=== PATIENT | female | born 1935 | race Caucasian/White ===

== ENCOUNTER 2016-11-21 08:41 | Emergency (ER) | payer OTHER, MEDICAID ==
[~2016-11-21] VITALS: Ht 149.9 cm; Wt 63.5 kg
[2016-11-21 08:41] VITALS: BP 133/55; PULSE 66; RESP 16; TEMP 97.3; O2SAT 95
[~2016-11-21 08:41] MED LIST: AMLO10TA88 PO; ATEN50TA PO; DOCU250C75 PO; MELA3TAB36 PO; METO-290 PO; NAPR-227 PO; SIMV20TA6 PO; VALS1TAB37 PO
--- NOTE | 2016-11-21 08:45 | NUR ---
Patient to ER bed 06 to gown for evaluation. Side rails up.
--- NOTE | 2016-11-21 08:50 | NUR ---
Pt brought by family member via wheelcair, pt c/o R hip pain after twisting to collect urine, pain level 6/10, skin pink and warm, cap refill <3, VSS.
--- NOTE | 2016-11-21 08:50 | NUR ---
Dr Cheng at bedside examining patient
--- NOTE | 2016-11-21 09:25 | NUR ---
Pt off the unit for X-ray
--- NOTE | 2016-11-21 09:28 | NUR ---
Sam kimball in [facility] - 11/21/16 at 0928 by [email or web address] Pt off the unit for CT
--- NOTE | 2016-11-21 10:00 | NUR ---
Pt on stable condition at this time, VSS, pt ambulated to bathroom
[2016-11-21] MEDS ORDERED: KETOROLAC TROMETHAMINE 60 MG/2 ML VIAL IM ONE (11:45)
[2016-11-21 12:12] VITALS: BP 133/55; PULSE 66; RESP 16; TEMP 97.3; O2SAT 95
--- NOTE | 2016-11-21 12:12 | NUR ---
Patient given written and verbal discharge instructions and verbalizes understanding. ER MD discussed with patient the results and treatment provided. Patient in stable condition. ID arm band removed. Patient educated on pain management and to follow up with PMD. Pain Scale 0/10. Opportunity for questions provided and answered.
[2016-11-21] MEDS ORDERED: methylPREDNISolone SOD SUCC/PF 62.5 MG/ML VIAL IM ONE (12:15)
== END 2016-11-21 12:12 | disposition home or self-care (01) ==
LOC: SED 08:41
DX: S76.011A Strain of muscle, fascia and tendon of right hip, initial encounter (principal); I10 Essential (primary) hypertension; Z88.0 Allergy status to penicillin; X58.XXXA Exposure to other specified factors, initial encounter; Y93.89 Activity, other specified; Y92.89 Other specified places as the place of occurrence of the external cause; Y99.8 Other external cause status
CPT/HCPCS: 72170; 73510; 73552; 96372; 99284; J1885; J2930

== ENCOUNTER 2017-01-17 18:12 | Emergency (ER) | payer OTHER, MEDICAID ==
[~2017-01-17] VITALS: Ht 149.9 cm; Wt 81.6 kg
[2017-01-17 18:20] VITALS: BP_SYST 148
[2017-01-17] MEDS ORDERED: ONDANSETRON 4 MG ODT TAB PO ONE (19:45)
[2017-01-17] MEDS ORDERED: MORPHINE SULFATE 10 MG/ML VIAL IM ONE (19:45)
[2017-01-17 20:30] VITALS: BP_SYST 131
== END 2017-01-17 20:30 | disposition home or self-care (01) ==
LOC: SED 18:12
DX: S42.292A Other displaced fracture of upper end of left humerus, initial encounter for closed fracture (principal); M25.552 Pain in left hip; I10 Essential (primary) hypertension; Z88.0 Allergy status to penicillin; Z79.899 Other long term (current) drug therapy; W31.89XA Contact with other specified machinery, initial encounter; Y93.A1 Activity, exercise machines primarily for cardiorespiratory conditioning; Y92.89 Other specified places as the place of occurrence of the external cause; Y99.8 Other external cause status
CPT/HCPCS: 73030; 73510; 96372; 99284; J2270; Q0162

== ENCOUNTER 2017-03-26 16:03 | Outpatient (CLI) | payer OTHER, MEDICAID | END 2017-03-26 18:36 | disposition home or self-care (01) | LOC: SRD 16:03 | PROVIDERS: ATTEND Internal Medicine | DX: R10.9 Unspecified abdominal pain (principal); Z90.49 Acquired absence of other specified parts of digestive tract | CPT/HCPCS: 74000-TC ==

== ENCOUNTER 2017-06-28 12:28 | Outpatient (CLI) | payer OTHER, MEDICAID | END 2017-06-28 19:21 | disposition home or self-care (01) | LOC: SRD 12:28 | PROVIDERS: ATTEND Internal Medicine | DX: M16.12 Unilateral primary osteoarthritis, left hip (principal); M81.0 Age-related osteoporosis without current pathological fracture | CPT/HCPCS: 73502 ==

== ENCOUNTER 2017-09-05 08:28 | Emergency (ER) | payer OTHER, MEDICAID ==
[~2017-09-05] VITALS: Ht 149.9 cm; Wt 81.6 kg
[2017-09-05 08:33] VITALS: BP_SYST 162
[2017-09-05] MEDS ORDERED: IPRATROPIUM/ALBUTEROL SULFATE 3 ML AMPUL.NEB INH ONE (09:00)
[2017-09-05 09:10] LABS: BASOPHILS % (AUTO) 0.5 % (0.0-2.0); EOSINOPHILS # (AUTO) 0.1 K/uL (0.0-0.4); EOSINOPHILS % (AUTO) 1.2 % (0.0-4.0); HEMATOCRIT 42.4 % (36-48); HEMOGLOBIN 13.4 g/dL (12.0-16.0); LYMPHOCYTES # (AUTO) 1.7 K/uL (1.0-5.5); LYMPHOCYTES % (AUTO) 32.8 % (20.5-51.5); MEAN CORPUSCULAR HEMOGLOBIN 27 pg (27-31); MEAN CORPUSCULAR HGB CONC 32 % (32-36); MEAN CORPUSCULAR VOLUME 86 fL (79.0-98.0); MONOCYTES # (AUTO) 0.6 K/uL (0.0-1.0); MONOCYTES % (AUTO) 11.6 % (1.7-9.3); NEUTROPHILS # (AUTO) 2.8 K/uL (1.8-7.7); NEUTROPHILS % (AUTO) 53.9 % (40.0-70.0); PLATELET COUNT (AUTO) 237 K/uL (130-430); RED BLOOD CELL COUNT(AUTO) 4.96 MIL/uL (4.2-6.2); RED CELL DISTRIBUTION WIDTH 14.2 % (9.0-15.0); WHITE BLOOD COUNT (AUTO) 5.2 K/uL (4.8-10.8)
[2017-09-05 09:13] LABS: ANION GAP 6 (5-15); CALCIUM 8.9 mg/dL (8.4-11.0); CHLORIDE 96 mmol/L (98-107); CREATININE 0.91 mg/dL (0.55-1.30); GLUCOSE 251 mg/dL (70-99); POTASSIUM 3.4 mmol/L (3.5-5.1); SODIUM SERUM 134 mmol/L (136-145); UREA NITROGEN, BLOOD 13 mg/dL (8-21)
[2017-09-05 09:18] LABS: ALANINE AMINOTRANSFERASE 65 U/L (12-78); ALBUMIN 3.2 g/dL (3.4-4.8); ASPARTATE AMINOTRANSFERASE 53 U/L (10-37); TOTAL BILIRUBIN 0.4 mg/dL (0.0-1.0)
[2017-09-05] MEDS ORDERED: INSULIN REGULAR, HUMAN 10 UNITS/0.1 ML INJ SUBCUT ONE (11:15)
[2017-09-05 11:41] VITALS: BP_SYST 152
== END 2017-09-05 11:41 | disposition home or self-care (01) ==
LOC: SED 08:28
DX: J40 Bronchitis, not specified as acute or chronic (principal); E11.65 Type 2 diabetes mellitus with hyperglycemia; I10 Essential (primary) hypertension; Z88.0 Allergy status to penicillin; Z79.899 Other long term (current) drug therapy
CPT/HCPCS: 36415; 71010; 80053; 82962; 85025; 94640; 96372; 99285; J1815

== ENCOUNTER 2018-05-15 22:04 | Emergency (ER) | payer OTHER, MEDICAID ==
[~2018-05-15] VITALS: Ht 149.9 cm; Wt 77.1 kg
[~2018-05-15 22:04] MED LIST changes: +ACET-2634 PO; -AMLO10TA88 PO; -ATEN50TA PO; +DESL5TAB PO; +IBUP-1969 PO; +LIP40 PO; +LOSA100T3 PO; -MELA3TAB36 PO; -METO-290 PO; +METO50TA7 PO; -NAPR-227 PO; -SIMV20TA6 PO; +SITA100T11 PO; -VALS1TAB37 PO
[2018-05-15 22:15] VITALS: BP_SYST 187
[2018-05-16 00:30] VITALS: BP_SYST 159
== END 2018-05-16 00:29 | disposition home or self-care (01) ==
LOC: SED 22:04
DX: I10 Essential (primary) hypertension (principal); J45.909 Unspecified asthma, uncomplicated; E11.9 Type 2 diabetes mellitus without complications; E78.5 Hyperlipidemia, unspecified; Z88.0 Allergy status to penicillin; Z88.6 Allergy status to analgesic agent; Z79.899 Other long term (current) drug therapy
CPT/HCPCS: 99283

== ENCOUNTER 2018-08-21 09:37 | Inpatient (IN) | payer OTHER, MEDICAID ==
[~2018-08-21] VITALS: Ht 149.9 cm; Wt 78.9 kg
[2018-08-21] VITALS (12 sets, daily range): BP systolic 97–143
--- NOTE | 2018-08-21 09:41 | NUR ---
Patient to ER bed 3 to gown for evaluation. Side rails up. Assumed care.
--- NOTE | 2018-08-21 09:47 | NUR ---
Patient arrived via POV with family at bedside. Patient was seen at Dr. Goetz's office. Sent over for evaluation bronchitis vs. pneumonia. Patient states she has been sick for 5 days, persistant productive cough, clear green sputum. Patient denies fever at this time, and patient denies chest pain. Patient has wheezes present to bilateral lungs. Patient has moist cough. Will continue to follow up and monitor patient for changes in status.
--- NOTE | 2018-08-21 09:50 | NUR ---
ER at bedside examining patient.
[2018-08-21] MEDS ORDERED: IPRATROPIUM/ALBUTEROL SULFATE 3 ML AMPUL.NEB (DUONEB) INH ONE (10:00)
[2018-08-21] MEDS ORDERED: IPRATROPIUM/ALBUTEROL SULFATE 3 ML AMPUL.NEB (DUONEB) ONE (10:03)
[2018-08-21 10:37] LABS: BASOPHILS % (AUTO) 0.4 % (0.0-2.0); EOSINOPHILS # (AUTO) 0.1 K/uL (0.0-0.4); EOSINOPHILS % (AUTO) 0.9 % (0.0-4.0); HEMATOCRIT 39.9 % (36-48); HEMOGLOBIN 12.9 g/dL (12.0-16.0); LYMPHOCYTES # (AUTO) 2.6 K/uL (1.0-5.5); LYMPHOCYTES % (AUTO) 26.8 % (20.5-51.5); MEAN CORPUSCULAR HEMOGLOBIN 28 pg (27-31); MEAN CORPUSCULAR HGB CONC 32 % (32-36); MEAN CORPUSCULAR VOLUME 87 fL (79.0-98.0); MONOCYTES # (AUTO) 1.4 K/uL (0.0-1.0); MONOCYTES % (AUTO) 14.9 % (1.7-9.3); NEUTROPHILS # (AUTO) 5.5 K/uL (1.8-7.7); PLATELET COUNT (AUTO) 254 K/uL (130-430); RED BLOOD CELL COUNT(AUTO) 4.61 MIL/uL (4.2-6.2); RED CELL DISTRIBUTION WIDTH 13.6 % (9.0-15.0); WHITE BLOOD COUNT (AUTO) 9.6 K/uL (4.8-10.8)
[2018-08-21 11:01] LABS: ANION GAP 5 (5-15); CALCIUM 8.5 mg/dL (8.4-11.0); CHLORIDE 96 mmol/L (98-107); CREATININE 0.81 mg/dL (0.55-1.30); GLUCOSE 111 mg/dL (70-99); SODIUM SERUM 134 mmol/L (136-145); UREA NITROGEN, BLOOD 21 mg/dL (8-21)
[2018-08-21 11:06] LABS: ALANINE AMINOTRANSFERASE 34 U/L (12-78); ALBUMIN 2.9 g/dL (3.4-4.8); ASPARTATE AMINOTRANSFERASE 37 U/L (10-37); TOTAL BILIRUBIN 0.2 mg/dL (0.0-1.0)
--- NOTE | 2018-08-21 11:15 | NUR ---
Dr Wynne at bedside for evaluation
[2018-08-21] MEDS ORDERED: ENALAPRILAT DIHYDRATE 1.25 MG/ML VIAL IVP ONE (11:30)
[2018-08-21] MEDS ORDERED: ALBUTEROL SULFATE 0.083% 2.5 MG/3 ML VIAL.NEB INH ONE ×2 (11:30→12:15)
[2018-08-21] MEDS ORDERED: IPRATROPIUM BROM 0.5 MG/2.5 ML VIAL.NEB (ATROVENT) INH ONE ×2 (11:30→12:15)
[2018-08-21] MEDS ORDERED: FUROSEMIDE 40 MG/4 ML VIAL IVP ONE (11:30)
[2018-08-21] MEDS ORDERED: IPRATROPIUM/ALBUTEROL SULFATE 3 ML AMPUL.NEB (DUONEB) INH PRN (11:45)
--- NOTE | 2018-08-21 12:21 | NUR ---
Spoke with patients family member in regards to home medications list or medication bottles, he will bring them in as soon as possible.
--- NOTE | 2018-08-21 12:45 | NUR ---
# 16 FR Mathias catheter with use of sterile technique. Immediate return of 150 cc cloudy yellow urine noted. Bedside drainage bag placed below level of bladder. Urine sample collected and sent to lab. Pt tolerated procedure well. Patient unable to toilet self.
[2018-08-21] MEDS ORDERED: IOHEXOL 350 mgI/mL, 150 ML INFUS..BTL IV ONE (12:52)
--- NOTE | 2018-08-21 12:53 | NUR ---
Patient taken to CT scan on 4L via NC. Patient placed on monitor and accompanied by RN. Patient vital signs are stable at this time. Patient has 20ga to right AC for infusion of contrast during CT. Patient tolerated well.
--- NOTE | 2018-08-21 13:46 | NUR ---
Patient will be admitted to care of Dr. Myrick. Admitted to ICU unit. Will go to room ICU3. Belongings list completed. Summary report printed. Report will be given at bedside.
--- NOTE | 2018-08-21 13:46 | NUR ---
CONSULTATION PAGED PRIORITY: ROUTINE REASON FOR CONSULTATION?:RESPIRATORY FAILURE WAS CONSULT CALLED:Y PERSON WHO WAS NOTIFIED:TAMELA CONSULTING PHYSICIAN:MANDIE OWENS PARAPROFESSIONAL INTERPRETER SPECIALTY:PULMONARY PARAPROFESSIONAL INTERPRETER PHONE NUMBER:[phone]
--- NOTE | 2018-08-21 13:53 | NUR ---
MD COMMUNICATION: Dr. Azul called in, read ABG. Informed her patient was just put back on BiPAP. Dr. Azul wants repeat ABG in 1/2 hour.
[2018-08-21] MEDS: methylPREDNISolone SOD SUCC/PF 62.5 MG/ML VIAL IVP SCH ×2 (14:00→22:04)
[2018-08-21] MEDS ORDERED: ENOXAPARIN SODIUM 40 MG/0.4 ML SYRINGE SUBCUT ONE (14:45)
[2018-08-21] MEDS ORDERED: IBUP-1969 PO (14:58)
[2018-08-21] MEDS ORDERED: TURM538C PO (14:58)
[2018-08-21] MEDS ORDERED: GLUC500C2 PO (14:58)
[2018-08-21] MEDS ORDERED: LIP40 PO (14:58)
[2018-08-21] MEDS ORDERED: SITA25TA3 PO (14:58)
[2018-08-21] MEDS ORDERED: DESL5TAB29 PO (14:58)
[2018-08-21] MEDS ORDERED: ACET325C4 PO (14:58)
[2018-08-21] MEDS ORDERED: PHEDM120 PO (14:58)
[2018-08-21] MEDS ORDERED: DOCU250C14 PO (14:58)
[2018-08-21] MEDS ORDERED: DONE10TA44 PO (14:58)
[2018-08-21] MEDS ORDERED: HYDR12.55 PO (14:58)
[2018-08-21] MEDS ORDERED: METO50TA7 PO (14:58)
[2018-08-21] MEDS ORDERED: IRBE300T40 PO (14:58)
--- NOTE | 2018-08-21 15:00 | NUR ---
RT: Patient put on AVAP 500 by RT.
[2018-08-21] MEDS: LEVOFLOXACIN 250 MG/D5W 50 ML IV SCH (15:22)
[2018-08-21] MEDS: IPRATROPIUM/ALBUTEROL SULFATE 3 ML AMPUL.NEB (DUONEB) INH SCH ×3 (16:06→23:55)
--- NOTE | 2018-08-21 16:29 | NUR ---
PAGED PAGED MANDIE OWENS AT [phone] SPOKE WITH SALLY.
--- NOTE | 2018-08-21 18:45 | NUR ---
PAGED: Dr. Ramachandran (extractions technologist for Dr. Myrick) paged at [phone] for orders. Spoke with his exchange.
[2018-08-21] MEDS ORDERED: D5NS 1,000 ML IV SCH (19:00)
--- NOTE | 2018-08-21 19:18 | NUR ---
REPORT: Given to CLAUDETTE Rascon for continuation of care. No signs or symptoms of distress noted.
--- NOTE | 2018-08-21 20:00 | NUR ---
ASSESSMENT Pt quiet, with Avap in use. Pt tolerating current settings. IVF infusing right forearm 20ga no redness or swelling noted @ site. Mathias cath in use. Family At bedside.
--- NOTE | 2018-08-21 20:15 | NUR ---
DR YELENA Franklin called with ABG results, orders received to decrease FIO2 to 28%.
[2018-08-21] MEDS: FAMOTIDINE PF 20 MG/2 ML VIAL IVP SCH (22:02)
[2018-08-21] MEDS: INSULIN REGULAR, HUMAN 100 UNITS/ML, 10 ML VIAL (novoLIN R) SUBCUT PRN (22:15)
[2018-08-22] VITALS (24 sets, daily range): BP systolic 118–159
[2018-08-22] MEDS: IPRATROPIUM/ALBUTEROL SULFATE 3 ML AMPUL.NEB (DUONEB) INH SCH ×6 (04:05→23:37)
[2018-08-22] MEDS: INSULIN REGULAR, HUMAN 100 UNITS/ML, 10 ML VIAL (novoLIN R) SUBCUT PRN ×4 (06:49→21:57)
[2018-08-22] MEDS: methylPREDNISolone SOD SUCC/PF 62.5 MG/ML VIAL IVP SCH ×3 (06:51→21:42)
[2018-08-22 06:58] LABS: HEMATOCRIT 41.8 % (36-48); HEMOGLOBIN 13.5 g/dL (12.0-16.0); LYMPHOCYTES # (AUTO) 1.2 K/uL (1.0-5.5); LYMPHOCYTES % (AUTO) 11.4 % (20.5-51.5); MEAN CORPUSCULAR HEMOGLOBIN 28 pg (27-31); MEAN CORPUSCULAR HGB CONC 32 % (32-36); MEAN CORPUSCULAR VOLUME 87 fL (79.0-98.0); MONOCYTES # (AUTO) 0.5 K/uL (0.0-1.0); MONOCYTES % (AUTO) 4.3 % (1.7-9.3); NEUTROPHILS # (AUTO) 8.8 K/uL (1.8-7.7); NEUTROPHILS % (AUTO) 84.3 % (40.0-70.0); PLATELET COUNT (AUTO) 247 K/uL (130-430); RED BLOOD CELL COUNT(AUTO) 4.82 MIL/uL (4.2-6.2); RED CELL DISTRIBUTION WIDTH 13.9 % (9.0-15.0); WHITE BLOOD COUNT (AUTO) 10.5 K/uL (4.8-10.8)
[2018-08-22 07:12] LABS: ALANINE AMINOTRANSFERASE 32 U/L (12-78); ALBUMIN 2.8 g/dL (3.4-4.8); ANION GAP 5 (5-15); ASPARTATE AMINOTRANSFERASE 29 U/L (10-37); CALCIUM 8.5 mg/dL (8.4-11.0); CHLORIDE 99 mmol/L (98-107); CREATININE 0.81 mg/dL (0.55-1.30); GLUCOSE 176 mg/dL (70-99); SODIUM SERUM 137 mmol/L (136-145); TOTAL BILIRUBIN 0.2 mg/dL (0.0-1.0); UREA NITROGEN, BLOOD 23 mg/dL (8-21)
--- NOTE | 2018-08-22 07:49 | NUR ---
MD eulalia esteban for critical ABG results: pH- 7.353, pCO2- 62.6, pO2- 97.7, HCO3- 34.0, base excess- 6.4. No new orders given at this time.
--- NOTE | 2018-08-22 07:50 | NUR ---
AM Assessment Patient received lying in bed with facial mask via AVAP. Patient is awake, alert, and is able to communicate and is cooperative. She understands basic breathing techniques. O2 sat at this hour in the high 90s. Patient denies body discomfort, no nausea. Patient desired to have water. Education provided that patient is NPO and will refer to the doctor during their morning rounds.
[2018-08-22] MEDS: FAMOTIDINE PF 20 MG/2 ML VIAL IVP SCH ×2 (09:04→21:42)
[2018-08-22] MEDS: ENOXAPARIN SODIUM 40 MG/0.4 ML SYRINGE SUBCUT SCH (09:16)
--- NOTE | 2018-08-22 09:18 | NUR ---
Patient seen and evaluated by Dr. Myrick. New order received. Patient can be on full liquid diet. Patient was given water per request. Patient drank water without any issues noted. Patient was very thirsty.
[2018-08-22] MEDS: FUROSEMIDE 20 MG TABLET PO SCH (09:23)
--- NOTE | 2018-08-22 09:50 | NUR ---
Ultrasound Patient at this hour is getting a doppler ultrasound of the lower extremities.
--- NOTE | 2018-08-22 10:35 | NUR ---
O2 Patient seen with RT and AVAPS switched to NC at 2L. Will continue to monitor patient.
[2018-08-22] MEDS: 0.45% NACL 1,000 ML IV SCH (10:51)
--- NOTE | 2018-08-22 11:00 | NUR ---
1040 TOOK BIPAP OFF AND PLACED NC 2 LPM PER MD SONG. SPO2 96%, HR 83. PT TOLERATING WELL. CONTINUE TO MONITOR PT.
--- NOTE | 2018-08-22 12:00 | NUR ---
O2 sat Patient awake at this moment. O2 sat at 94%. No chest discomfort reported. Patient without any signs of respiratory distress.
[2018-08-22] MEDS: LEVOFLOXACIN 250 MG/D5W 50 ML IV SCH (15:58)
--- NOTE | 2018-08-22 16:30 | NUR ---
Wound Evaluation: Wound Consult ordered for Low Luciano Score. Patient evaluated for a low Luciano score of 15. Patient was awake, alert, oriented, and received in a [place] Bed with an IsoFlex CARLY mattress with low air loss therapy initiated. Patient needs assist to turn in bed. Skin is fair (+). Recommend encourage and assist patient as needed with repositioning every 2 hours with pillow support. Elevate, off-load and float bilateral heels with pillows. Offload pressure areas with pillows for pressure re-distribution. Perform skin care and monitor skin integrity Q shift. Use moisture barrier cream on moisture susceptible areas QID and PRN for soiling. Maintain patient on a low air-loss mattress. Skin assessment: 1. Left breast fold: Intertriginous dermatitis, present on admission. Skin is pink under breast fold, with a small linear area of non-intact skin with pink tissue measuring 0.5 cm x 8.0 cm. Recommend: Cleanse involved area with normal saline. Pat dry. Apply antifungal powder to involved area. Place Interdry AG Cloth under bilateral Breast Folds X Five Days, and PRN For Soiling. Apply antifungal powder to left breast fold twice a day, and as needed for moisture/soiling.
--- NOTE | 2018-08-22 16:30 | NUR ---
Skin care Patient has been evaluated by medical records specialist under left breast irritation. Orders carried out. Bed bath, shilpa care done. Wound care to left breast performed, washed affected area with saline, pat dry with gauze, sprinkled with phytoplex powder, and left with interdry dressing.
--- NOTE | 2018-08-22 20:00 | NUR ---
ASSESSMENT Pt alert/oriented to self, time, place. Pt using 2L/min nasal cannula. IV site 20ga no redness or swelling noted @ site. Left hand 20ga saline lock, no redness or swelling noted @ site. Pt primary language is French. No C/O SOB. low air loss mattress in use.
[2018-08-23] VITALS (24 sets, daily range): BP systolic 139–185
[2018-08-23] MEDS: IPRATROPIUM/ALBUTEROL SULFATE 3 ML AMPUL.NEB (DUONEB) INH SCH ×6 (04:25→23:52)
[2018-08-23] MEDS: methylPREDNISolone SOD SUCC/PF 62.5 MG/ML VIAL IVP SCH (06:45)
[2018-08-23 06:49] LABS: BASOPHILS % (AUTO) 0.1 % (0.0-2.0); EOSINOPHILS % (AUTO) 0.1 % (0.0-4.0); HEMATOCRIT 40.6 % (36-48); HEMOGLOBIN 13.1 g/dL (12.0-16.0); LYMPHOCYTES % (AUTO) 6.7 % (20.5-51.5); MEAN CORPUSCULAR HEMOGLOBIN 28 pg (27-31); MEAN CORPUSCULAR HGB CONC 32 % (32-36); MEAN CORPUSCULAR VOLUME 87 fL (79.0-98.0); MONOCYTES % (AUTO) 6.4 % (1.7-9.3); NEUTROPHILS # (AUTO) 13.5 K/uL (1.8-7.7); NEUTROPHILS % (AUTO) 86.7 % (40.0-70.0); PLATELET COUNT (AUTO) 304 K/uL (130-430); RED BLOOD CELL COUNT(AUTO) 4.67 MIL/uL (4.2-6.2); RED CELL DISTRIBUTION WIDTH 13.9 % (9.0-15.0); WHITE BLOOD COUNT (AUTO) 15.5 K/uL (4.8-10.8)
[2018-08-23] MEDS: INSULIN REGULAR, HUMAN 100 UNITS/ML, 10 ML VIAL (novoLIN R) SUBCUT PRN ×4 (06:50→22:37)
--- NOTE | 2018-08-23 07:30 | NUR ---
AM Rounds Received bedside report from PM RN Tarah. Pt on 1 L O2 per nasal cannula. Mathias in place. Pt. in no apparent distress. Call light within reach, bed alarm on, bed locked in lowest position.
[2018-08-23 07:37] LABS: ANION GAP 3 (5-15); CALCIUM 8.5 mg/dL (8.4-11.0); CHLORIDE 99 mmol/L (98-107); CREATININE 0.93 mg/dL (0.55-1.30); GLUCOSE 192 mg/dL (70-99); POTASSIUM 4.5 mmol/L (3.5-5.1); SODIUM SERUM 139 mmol/L (136-145); UREA NITROGEN, BLOOD 23 mg/dL (8-21)
--- NOTE | 2018-08-23 08:30 | NUR ---
Medications Administered medications to pt. Pt. tolerated well, no adverse reactions. Will continue to monitor.
[2018-08-23] MEDS: FAMOTIDINE PF 20 MG/2 ML VIAL IVP SCH (08:37)
[2018-08-23] MEDS: FUROSEMIDE 20 MG TABLET PO SCH (08:37)
[2018-08-23] MEDS: ENOXAPARIN SODIUM 40 MG/0.4 ML SYRINGE SUBCUT SCH (08:38)
[2018-08-23] MEDS: LISINOPRIL 10 MG TABLET (PRINIVIL) PO SCH (09:35)
[2018-08-23] MEDS: guaiFENesin/DEXTROMETHORPHAN 1 EACH TAB.ER.12H PO SCH ×2 (09:36→22:28)
--- NOTE | 2018-08-23 10:30 | NUR ---
Physical Therapy Physical therapist Zeke assisted patient to chair. Pt. on room air, SaO2 91%, pt. tolerating well.
[2018-08-23] MEDS: 0.45% NACL 1,000 ML IV SCH (11:34)
--- NOTE | 2018-08-23 11:35 | NUR ---
Blood Sugar Blood sugar of 313. Regular insulin 8 units administered. No adverse reactions. Will continue to monitor.
--- NOTE | 2018-08-23 11:37 | NUR ---
Nutrition Update Luciano Scale 17 noted. Pt admitted for respiratory failure. Diet: full liquid BMI: 35.3 kg/m2 RD to follow per nutrition care standards. Addendum: 08/23/18 at [address] CORRECTION: Luciano Scale 16 noted.
--- NOTE | 2018-08-23 12:45 | NUR ---
Assessment Pt. sitting up in chair watching tv with family at bedside. No chest discomfort noted and no apparent signs of distress. Call light within reach.
[2018-08-23] MEDS: methylPREDNISolone SOD SUCC 40 MG/ML VIAL IVP SCH ×2 (13:54→22:28)
[2018-08-23] MEDS: LEVOFLOXACIN 250 MG/D5W 50 ML IV SCH (14:49)
--- NOTE | 2018-08-23 16:30 | NUR ---
RN Rounds Patient sitting up in chair. Family at bedside. No apparent signs of distress. Call light within reach.
--- NOTE | 2018-08-23 16:39 | NUR ---
Dietitian Recommendations * Recommend continuing CCHO, low carb-45 gm, full liquid diet per MD (Glucerna TID comes standard w/ this diet, and provides an additional 660 kcal/day and 30 gm protein/day) LP, RD Please refer to Nutrition Assessment for details.
--- NOTE | 2018-08-23 17:00 | NUR ---
Blood sugar Blood sugar 298. Regular insulin 6 units subq given with witness. No adverse reaction.
[2018-08-23] MEDS: MONTELUKAST 10 MG TABLET PO SCH (18:08)
--- NOTE | 2018-08-23 18:51 | NUR ---
Closing Note Pt. finished 100% of dinner. Pt. sitting up in chair with family at bedside. Mathias catheter in place. Pt. in no apparent distress. Call light within reach.
--- NOTE | 2018-08-23 20:00 | NUR ---
ASSESSMENT Pt alert/oriented to self, time and place. Pt tolerating RA only. Pt talking with son no S/S of SOB. Pt has been tolerating sitting up in a chair for about 12 hours. IVF infusing, right forearm 20ga no c/o pain @ IV site, no redness noted. Left hand 20ga SL patient, no redness or swelling.
[2018-08-23] MEDS: ALPRAZolam 0.25 MG TABLET PO PRN (22:28)
[2018-08-23] MEDS: FAMOTIDINE 20 MG TABLET PO SCH (22:28)
[2018-08-23] MEDS: cloNIDine HCL 0.1 MG TABLET PO PRN (22:50)
[2018-08-24] VITALS (14 sets, daily range): BP systolic 149–190
--- NOTE | 2018-08-24 03:18 | NUR ---
CONFUSED Pt received Xanax 0.25mg per MD order, pt is now confused to place and time.
[2018-08-24] MEDS: IPRATROPIUM/ALBUTEROL SULFATE 3 ML AMPUL.NEB (DUONEB) INH SCH ×6 (03:41→23:13)
--- NOTE | 2018-08-24 03:57 | NUR ---
CONFUSED Nurse sitting @ bedside, Pt calmer, following directions. Pt receiving HHN tx.
[2018-08-24 05:48] LABS: HEMATOCRIT 39.8 % (36-48); HEMOGLOBIN 12.3 g/dL (12.0-16.0); LYMPHOCYTES % (AUTO) 6.6 % (20.5-51.5); MEAN CORPUSCULAR HEMOGLOBIN 27 pg (27-31); MEAN CORPUSCULAR HGB CONC 31 % (32-36); MEAN CORPUSCULAR VOLUME 89 fL (79.0-98.0); PLATELET COUNT (AUTO) 277 K/uL (130-430); RED BLOOD CELL COUNT(AUTO) 4.49 MIL/uL (4.2-6.2); RED CELL DISTRIBUTION WIDTH 13.6 % (9.0-15.0)
[2018-08-24 06:07] LABS: ANION GAP -1 (5-15); CALCIUM 8.2 mg/dL (8.4-11.0); CHLORIDE 102 mmol/L (98-107); CREATININE 0.93 mg/dL (0.55-1.30); GLUCOSE 243 mg/dL (70-99); POTASSIUM 4.9 mmol/L (3.5-5.1); SODIUM SERUM 139 mmol/L (136-145); UREA NITROGEN, BLOOD 19 mg/dL (8-21)
[2018-08-24 06:20] LABS: ALANINE AMINOTRANSFERASE 28 U/L (12-78); ALBUMIN 2.7 g/dL (3.4-4.8); ASPARTATE AMINOTRANSFERASE 23 U/L (10-37); TOTAL BILIRUBIN 0.3 mg/dL (0.0-1.0)
[2018-08-24] MEDS: methylPREDNISolone SOD SUCC 40 MG/ML VIAL IVP SCH ×3 (06:33→21:09)
[2018-08-24] MEDS: cloNIDine HCL 0.1 MG TABLET PO PRN ×2 (06:38→23:02)
[2018-08-24] MEDS: INSULIN REGULAR, HUMAN 100 UNITS/ML, 10 ML VIAL (novoLIN R) SUBCUT PRN ×4 (06:42→21:23)
--- NOTE | 2018-08-24 07:00 | NUR ---
MD ROUNDS: Dr. Franklin in to see patient.
[2018-08-24 07:02] LABS: WHITE BLOOD COUNT (AUTO) 13.1 K/uL (4.8-10.8)
--- NOTE | 2018-08-24 07:15 | NUR ---
REPORT: Received from Myles for continuation of care.
[2018-08-24 07:19] LABS: BASOPHILS % (AUTO) 0.2 % (0.0-2.0); EOSINOPHILS % (AUTO) 0.1 % (0.0-4.0); LYMPHOCYTES # (AUTO) 0.8 K/uL (1.0-5.5); MONOCYTES # (AUTO) 0.5 K/uL (0.0-1.0); MONOCYTES % (AUTO) 4.3 % (1.7-9.3); NEUTROPHILS # (AUTO) 11.4 K/uL (1.8-7.7); NEUTROPHILS % (AUTO) 88.8 % (40.0-70.0)
--- NOTE | 2018-08-24 07:30 | NUR ---
AM ROUNDS: Patient is resting in bed. No signs or symptoms of distress noted.
--- NOTE | 2018-08-24 08:00 | NUR ---
MD ROUNDS: Dr. Mckeon in to see patient.
[2018-08-24] MEDS: FUROSEMIDE 20 MG TABLET PO SCH (08:03)
[2018-08-24] MEDS: FAMOTIDINE 20 MG TABLET PO SCH ×2 (08:03→21:09)
[2018-08-24] MEDS: guaiFENesin/DEXTROMETHORPHAN 1 EACH TAB.ER.12H PO SCH ×2 (08:03→21:10)
[2018-08-24] MEDS: LISINOPRIL 10 MG TABLET (PRINIVIL) PO SCH (08:03)
[2018-08-24] MEDS: ENOXAPARIN SODIUM 40 MG/0.4 ML SYRINGE SUBCUT SCH (08:04)
[2018-08-24] MEDS: 0.45% NACL 1,000 ML IV SCH (10:35)
--- NOTE | 2018-08-24 11:45 | NUR ---
TRANSFERRED: Patient transferred to telemetry room 119A via bed with mobile monitoring and RN. Report given to Chanel for continuation of care.
--- NOTE | 2018-08-24 12:00 | NUR ---
RECEIVED FROM ICU Patient received from ICU. Patient is awake, alert and oriented x4, denies any pain/discomfort at this time. No respiratory distress. RT in the room, patient is receiving breathing treatment at this time. IV site on the left hand 20 G patent and intact. 1/2 NS infusing at 40 ml/hr. Oriented the patient to room, call light use, board, and routine, and patient verbalized understanding. Safety and fall precautions in place, bed is in lowest position and locked, bed alarm on, side rails up x2, call light within reach, will continue to monitor. Eliel Aleman at the bedside.
--- NOTE | 2018-08-24 15:00 | NUR ---
ROUNDS Patient has no complaints of pain or discomfort, is awake, alert and oriented x4. No respiratory distress, on 1/2L O2 via nasal cannula. IV site on the left hand patent and intact, IVF infusing as ordered. Safety and fall precautions in place, family at the bedside, call light within reach, will continue to monitor.
[2018-08-24] MEDS: LEVOFLOXACIN 250 MG/D5W 50 ML IV SCH (15:29)
[2018-08-24] MEDS: MONTELUKAST 10 MG TABLET PO SCH (17:13)
--- NOTE | 2018-08-24 18:27 | NUR ---
CLOSING NOTE Patient is awake, alert and oriented x4. Denies any pain/discomfort at this time. No respiratory distress noted, patient is on 1/2L O2 via nasal cannula. IV site on the left hand patent and intact, 1/2NS infusing as ordered. Safety and fall precautions in place. Bed is in lowest position and locked, alarm on, side rails up x2, call light within reach, family at bedside. All needs met and anticipated throughout the shift, will endorse plan of care.
--- NOTE | 2018-08-24 19:38 | NUR ---
OPENING NOTE RECEIVED CARE OF PT AND BEDSIDE REPORT. PT AWAKE IN BED, COOPERATIVE, WITH FAMILY AT BEDSIDE. IV IN LEFT HAND PATENT AND NO SIGNS OR SYMPTOMS OF INFILTRATION AT THIS TIME. SAFETY AND FALL PRECAUTIONS ARE IN PLACE. BED IN LOWEST POSITION, CALL LIGHT IN REACH, SIDE RAILS UP, PT INSTRUCTED TO CALL FOR ASSISTANCE. WILL CONTINUE TO MONITOR.
[2018-08-24] MEDS: ALPRAZolam 0.25 MG TABLET PO PRN (21:19)
--- NOTE | 2018-08-24 21:19 | NUR ---
ANXIETY PT STATES SHE WAS ANXIOUS AND HAVING TROUBLE SLEEPING. PT REQUESTING PRN ATIVAN 0.25 MG. PT EDUCATED ON MEDICATION AND SIDE EFFECTS. SAFETY PRECAUTIONS IN PLACE. WILL CONTINUE TO MONITOR.
--- NOTE | 2018-08-24 22:45 | NUR ---
BP RECHECKED PT BLOOD PRESSURE AFTER XANAX ADMINISTERED. BLOOD PRESSURE 190/79. WILL ADMINISTER PRN CATAPRES, EDUCATED PT ON MEDICATION AND POTENTIAL SIDE EFFECTS. SAFETY PRECAUTIONS IN PLACE. WILL CONTINUE TO MONITOR.
[2018-08-25] VITALS: BP_SYST 149
--- NOTE | 2018-08-25 | NUR ---
BP FOLLOW UP CATAPRES ADMINISTERED AT 2302. BP NOW 149/79. PT RESTING COMFORTABLY IN BED, DENIES ANY PAIN AT THIS TIME, NO SIGNS OR SYMPTOMS OF ACUTE DISTRESS AT THIS TIME. SAFETY PRECAUTIONS IN PLACE, CALL LIGHT WITH PATIENT. WILL CONTINUE TO MONITOR.
--- NOTE | 2018-08-25 02:00 | NUR ---
NURSING NOTE PT RESTING IN BED WITH EYES CLOSED. CHEST RISE AND FALL IS SYMMETRICAL. NO ACUTE SIGNS OF DISTRESS NOTED AT THIS TIME. SAFETY PRECAUTIONS ARE IN PLACE, CALL LIGHT IS WITH PATIENT. WILL CONTINUE TO MONITOR.
[2018-08-25] MEDS: IPRATROPIUM/ALBUTEROL SULFATE 3 ML AMPUL.NEB (DUONEB) INH SCH ×6 (03:27→23:12)
--- NOTE | 2018-08-25 04:00 | NUR ---
NURSING NOTE PT CURRENTLY RESTING IN BED WITH EYES CLOSED. CHEST RISE AND FALL IS SYMMETRICAL. NO ACUTE SIGNS OF DISTRESS NOTED AT THIS TIME. SAFETY PRECAUTIONS ARE IN PLACE, CALL LIGHT IS WITH PATIENT. WILL CONTINUE TO MONITOR.
[2018-08-25] MEDS: methylPREDNISolone SOD SUCC 40 MG/ML VIAL IVP SCH ×3 (06:00→22:26)
[2018-08-25] MEDS: INSULIN REGULAR, HUMAN 100 UNITS/ML, 10 ML VIAL (novoLIN R) SUBCUT PRN ×4 (06:18→22:30)
--- NOTE | 2018-08-25 06:30 | NUR ---
CLOSING NOTE PT RESTING IN BED. NO SIGNS OR SYMPTOMS OF DISTRESS AT THIS TIME. PT BREATHING EVENLY AND EFFORTLESSLY TO O2 VIA NC AT 2 LITERS. IVF RUNNING, NO SIGNS OR SYMPTOMS OF INFILTRATION AT IV SITE. ALL NEEDS MET DURING SHIFT. WILL ENDORSE CARE TO DAY SHIFT RN.
[2018-08-25 06:43] LABS: CALCIUM 8.2 mg/dL (8.4-11.0); CHLORIDE 100 mmol/L (98-107); CREATININE 0.85 mg/dL (0.55-1.30); GLUCOSE 199 mg/dL (70-99); POTASSIUM 4.8 mmol/L (3.5-5.1); SODIUM SERUM 138 mmol/L (136-145); UREA NITROGEN, BLOOD 19 mg/dL (8-21)
[2018-08-25 06:57] LABS: ALANINE AMINOTRANSFERASE 26 U/L (12-78); ALBUMIN 2.6 g/dL (3.4-4.8); ASPARTATE AMINOTRANSFERASE 33 U/L (10-37); TOTAL BILIRUBIN 0.2 mg/dL (0.0-1.0)
[2018-08-25 07:11] LABS: ANION GAP < 3 (5-15)
--- NOTE | 2018-08-25 07:40 | NUR ---
report received received report at bedside, RT is about to give patient breathing treatment, will come back for assessment and morning medications, bed in the lowest position, bed alarm on, three side rails up, call light within reach, fall and aspiration precautions in place, morin intact, IV line clean and intact.
[2018-08-25 08:34] VITALS: BP_SYST 155
[2018-08-25 08:36] LABS: BASOPHILS % (AUTO) 0.1 % (0.0-2.0); HEMATOCRIT 39.5 % (36-48); HEMOGLOBIN 12.8 g/dL (12.0-16.0); LYMPHOCYTES # (AUTO) 1.3 K/uL (1.0-5.5); LYMPHOCYTES % (AUTO) 9.9 % (20.5-51.5); MEAN CORPUSCULAR HEMOGLOBIN 28 pg (27-31); MEAN CORPUSCULAR HGB CONC 32 % (32-36); MEAN CORPUSCULAR VOLUME 87 fL (79.0-98.0); MONOCYTES # (AUTO) 0.8 K/uL (0.0-1.0); MONOCYTES % (AUTO) 6.2 % (1.7-9.3); NEUTROPHILS # (AUTO) 10.9 K/uL (1.8-7.7); PLATELET COUNT (AUTO) 279 K/uL (130-430); RED BLOOD CELL COUNT(AUTO) 4.54 MIL/uL (4.2-6.2); RED CELL DISTRIBUTION WIDTH 13.9 % (9.0-15.0)
[2018-08-25] MEDS: FAMOTIDINE 20 MG TABLET PO SCH ×2 (08:36→22:26)
[2018-08-25] MEDS: LISINOPRIL 10 MG TABLET (PRINIVIL) PO SCH (08:36)
[2018-08-25] MEDS: FUROSEMIDE 20 MG TABLET PO SCH (08:37)
[2018-08-25] MEDS: ENOXAPARIN SODIUM 40 MG/0.4 ML SYRINGE SUBCUT SCH (08:38)
--- NOTE | 2018-08-25 08:40 | NUR ---
opening note patient is resting in bed, A&Ox4, assessment completed, educated nurse practitioner physicians assistant light system and ways to improve her SOB, patient verbalized understanding, lifted left breast to help air skin tear underneath breast, no other needs at this time, bed in the lowest position, bed alarm on, three side rails up, call light within reach, fall and aspiration precautions in place, morin intact, IV line clean and intact.
[2018-08-25] MEDS: guaiFENesin/DEXTROMETHORPHAN 1 EACH TAB.ER.12H PO SCH ×2 (08:42→22:26)
--- NOTE | 2018-08-25 08:42 | NUR ---
Medication patient is resting in bed, educated on medication uses and side effects, patient verbalized understanding and tolerated well, lifted left breast to help air skin tear underneath breast, no other needs at this time, bed in the lowest position, bed alarm on, three side rails up, call light within reach, fall and aspiration precautions in place, morin intact.
--- NOTE | 2018-08-25 09:10 | NUR ---
PT in room with patient.
--- NOTE | 2018-08-25 09:56 | NUR ---
Dr. Myrick rounds assessed patient at bedside, spoke with Surfboard Maker, Herminia, also regarding DC planning, patient wants to go home rather than a SNF, planning for home with home health for Physical Therapy. Addendum: 08/25/18 at 1032 by Donal oJ RN Reported ABG results to Dr. Elen MD requested of Surfboard Maker to order home O2 for the patient.
--- NOTE | 2018-08-25 10:20 | NUR ---
Spoke with Dr. Azul informed of ABG results and Dr. Myrick requesting for home oxygen, Dr. Azul said ok for 0.5L on oxygen, ok to discharge the patient home.
[2018-08-25] MEDS: BUDESONIDE 0.5 MG/2 ML AMPUL.NEB INH SCH ×2 (10:30→19:50)
[2018-08-25] MEDS ORDERED: MONT10TA25 PO (11:03)
[2018-08-25] MEDS ORDERED: MED4 PO (11:03)
[2018-08-25] MEDS ORDERED: BUDE0.5A IH (11:03)
[2018-08-25] MEDS ORDERED: FURO-150 PO (11:03)
[2018-08-25] MEDS ORDERED: ALBU2.5V7 INH (11:04)
[2018-08-25] MEDS ORDERED: AMOX-426 PO (11:04)
[2018-08-25 11:09] LABS: NEUTROPHILS % (AUTO) 83.8 % (40.0-70.0)
--- NOTE | 2018-08-25 11:51 | NUR ---
blood sugar check and mikel Oh/Analilia patient is resting in bed, sliding scale insulin given per MD order, educated on insulin uses and side effects, patient verbalized understanding and tolerated well, lifted left breast to help air skin tear underneath breast, mikel Sebastian per MD order, no other needs at this time, bed in the lowest position, bed alarm on, three side rails up, call light within reach, fall and aspiration precautions in place, mikel intact, family is waiting outside to sit with patient. Addendum: 08/25/18 at 1332 by Any Gill RN mikel Oh/C
[2018-08-25 12:30] VITALS: BP_SYST 186
--- NOTE | 2018-08-25 12:40 | NUR ---
Called Special Effects Artist - Herminia regarding discharge planning orders, per Dr. Myrick and Dr. Azul, home with home health for physical therapy, home oxygen and nebulizer, Herminia to follow up, will follow up with discharge. Addendum: 08/25/18 at 1527 by Donal Jo RN Second fax to [place]i from HCP with RX with home medications and RX for nebulizer - fax # [phone].
--- NOTE | 2018-08-25 13:15 | NUR ---
CLONIDINE AND SOLU-MEDROL patient is resting in bed, son at the bedside, given catapres per MD order, scheduled solu-medrol give, patient verbalized understanding and tolerated well, lifted left breast to help air skin tear underneath breast, no other needs at this time, bed in the lowest position, bed alarm on, three side rails up, call light within reach, fall and aspiration precautions in place.
[2018-08-25] MEDS: cloNIDine HCL 0.1 MG TABLET PO PRN (13:23)
[2018-08-25] MEDS: LEVOFLOXACIN 250 MG/D5W 50 ML IV SCH (14:46)
--- NOTE | 2018-08-25 15:05 | NUR ---
MEDICATION patient is resting in bed, son at the bedside, educated on medication use and side effects, patient verbalized understanding and tolerated well, lifted left breast to help air skin tear underneath breast, no other needs at this time, bed in the lowest position, bed alarm on, three side rails up, call light within reach, fall and aspiration precautions in place.
[2018-08-25 16:30] VITALS: BP_SYST 102
--- NOTE | 2018-08-25 17:45 | NUR ---
CINDY and ki patient is sitting in chair, family at the bedside, blood sugar checked, sliding scale insulin given d/t per MD order, educated on medication uses and side effects, patient verbalized understandign and tolerated well, no other needs at this time, call light within reach, fall and aspiration precautions in place, IV line clean and intact.
[2018-08-25] MEDS: MONTELUKAST 10 MG TABLET PO SCH (17:47)
--- NOTE | 2018-08-25 18:11 | NUR ---
Called HCP after hours line to get an update regarding DC planning for home with home health spoke with Geetha, following up as needed.
--- NOTE | 2018-08-25 18:38 | NUR ---
called Dr Myrick spoke with Tarah in regards to patient's home health discharge plans not being finalized.
--- NOTE | 2018-08-25 18:45 | NUR ---
Spoke with Dr. Hogan informed him of efforts to follow up with Real Estate Developer for DC planning but unable to get anymore info right now, Dr. Myrick ok to hold discharge until tomorrow morning, will inform NOC shift nurse.
--- NOTE | 2018-08-25 18:55 | NUR ---
closing note patient is sitting in chair, family at the bedside, patient denies SOB or pain, all needs met for shift, no other needs at this time, will endorse report to noc shift nurse, call light within reach, fall and aspiration precautions in place, IV line clean and intact.
[2018-08-25 20:00] VITALS: BP_SYST 158
--- NOTE | 2018-08-25 20:00 | NUR ---
Initial PM Note Pt is sitting comfortably in a chair at the bedside. She is fully awake, alert and oriented x3. Pt is able to make her needs known in Maltese, but pt speaks and understands little Greek. Family members are visiting at the bedside. No c/o pain or discomfort. No acute distress noted at this time. Saline lock in left hand is without signs of infiltration. VSS. Pt is afebrile. Fall and safety precautions are in place. Pt was instructed to call for assistance as needed and pt verbalized understanding. Call light is with pt. Will continue to monitor pt.
--- NOTE | 2018-08-25 22:30 | NUR ---
Blood Sugar Accucheck 193 and 2 units Regular Insulin was given SQ. Skin is warm and dry to touch. Pt was given 1/2 Crary Varney for HS snack per her request and she ate 100%.
[2018-08-25] MEDS: ALPRAZolam 0.25 MG TABLET PO PRN (22:40)
--- NOTE | 2018-08-25 22:40 | NUR ---
Anxiety Xanax 0.25mg was given po per pt's request for c/o anxiety with relief. Fall and safety precautions are in place. Call light is with pt and bed alarm is on.
[2018-08-26] VITALS (7 sets, daily range): BP systolic 153–173
--- NOTE | 2018-08-26 | NUR ---
Rounds Pt is resting quietly in bed. Fall and safety precautions are in place. Call light is with pt and bed alarm is on.
[2018-08-26] MEDS: IPRATROPIUM/ALBUTEROL SULFATE 3 ML AMPUL.NEB (DUONEB) INH SCH ×5 (02:00→19:38)
--- NOTE | 2018-08-26 02:00 | NUR ---
Rounds Pt is sleeping comfortably in bed without any respiratory distress noted. Fall and safety precautions are in place. Call light is with pt and bed alarm is on.
--- NOTE | 2018-08-26 04:00 | NUR ---
Rounds Pt is sleeping without any respiratory distress noted. Call light is with pt and bed alarm is on.
[2018-08-26] MEDS: methylPREDNISolone SOD SUCC 40 MG/ML VIAL IVP SCH (06:12)
[2018-08-26] MEDS: INSULIN REGULAR, HUMAN 100 UNITS/ML, 10 ML VIAL (novoLIN R) SUBCUT PRN ×3 (06:26→17:13)
--- NOTE | 2018-08-26 06:30 | NUR ---
Closing Note/Hygiene Pt was incontinent of large amount of urine in bed and also voided 800ml clear yellowish urine in BSC. Pt was assisted with hygiene and complete bed linen change, including pt's gown was done. Accucheck 240 and 4 units Regular Insulin was given SQ. Skin remains warm and dry to touch. All pt's needs were attended to. No fall or injury noted this shift. Call light is with pt and bed alarm is on. Will endorse to day shift nurse.
--- NOTE | 2018-08-26 08:00 | NUR ---
AM NOTES Patient laying in bed awake, alert, orientedx4. No s/s of distress or SOB, patient saturating 98% on O2 0.5lpm/NC. No pain reported. IV site patent, intact. Bed in lowest position, call light within reach.
[2018-08-26] MEDS: BUDESONIDE 0.5 MG/2 ML AMPUL.NEB INH SCH (08:04)
--- NOTE | 2018-08-26 08:05 | NUR ---
0805 PT FOUND ON 0.5L NASAL CANNULA. CURRENT SPO2 95%. Addendum: 08/26/18 at 0925 by Cici Godfrey RT Amended: Links added.
[2018-08-26] MEDS: FAMOTIDINE 20 MG TABLET PO SCH (08:15)
[2018-08-26] MEDS: LISINOPRIL 10 MG TABLET (PRINIVIL) PO SCH (08:15)
[2018-08-26] MEDS: FUROSEMIDE 20 MG TABLET PO SCH (08:15)
[2018-08-26] MEDS: guaiFENesin/DEXTROMETHORPHAN 1 EACH TAB.ER.12H PO SCH (08:15)
[2018-08-26] MEDS: cloNIDine HCL 0.1 MG TABLET PO PRN (08:16)
--- NOTE | 2018-08-26 08:16 | NUR ---
INCREASED BLOOD PRESSURE 160/95. PRN Catapres PO given. Will cont. to monitor patient.
[2018-08-26] MEDS: ENOXAPARIN SODIUM 40 MG/0.4 ML SYRINGE SUBCUT SCH (08:17)
--- NOTE | 2018-08-26 10:50 | NUR ---
MD VISIT Dr. Myrick at bedside speaking with patient and family regarding discharge for today. We are awaiting for O2 tank to be delivered to hospital.
--- NOTE | 2018-08-26 14:00 | NUR ---
BATHROOM Assisted patient to ambulate to the bathroom. Incontinence care done, linen changed. Patient sitting up in bedside chair. Family present.
--- NOTE | 2018-08-26 14:17 | NUR ---
PT note Attempt to have patient participate with therapy; patient refused, due to being tired. family members present and also asked to hold therapy for today.
[2018-08-26] MEDS: LEVOFLOXACIN 250 MG/D5W 50 ML IV SCH (14:56)
--- NOTE | 2018-08-26 16:46 | NUR ---
dcp. met with tawanna bellamy and yemi richards at bedside. pt is alert and oriented. order received for home 02 and nebs. ordered from [facility] t [phone]. rui kennedy rn/cm t [phone]
--- NOTE | 2018-08-26 17:00 | NUR ---
CALLED [facility] To follow up regarding discharge orders. Home health agency states they will delivery O2 tanks tonight.
[2018-08-26] MEDS: MONTELUKAST 10 MG TABLET PO SCH (18:00)
--- NOTE | 2018-08-26 18:20 | NUR ---
O2 DELIVERY Oxygen tank delivered to patients room. Vendor states O2 tank will also be delivered to patient's home. Patient instructed how to use O2 tank, patient and family verbalized understanding.
--- NOTE | 2018-08-26 19:00 | NUR ---
CLOSING NOTES Patient sitting up in bedside chair. No s/s of distress or SOB. All needs met during shift. Discharge endorsed to awake overnight monitor Aida WILKINS.
--- NOTE | 2018-08-26 19:55 | NUR ---
Discharge Note Pt was discharged home with her oxygen tank and all belongings via wheelchair in stable condition. Pt's family members accompanied pt. IV line already removed by day shift nurse. Transition of Care (Discharge Instructions) and Rx already given to pt by day shift nurse. bus driver/monitor was removed prior to discharge and taken to Order Desk Caller. Wrist ID bands were removed and placed in the shredder. Pt was assisted with putting on her street clothes.
[2018-08-27] MEDS ORDERED: PREDNISONE 20 MG TABLET PO SCH (09:00)
--- NOTE | 2018-08-27 10:47 | NUR ---
DC Planning: Received from [place], director to verify the home oxygen order and about the delayed delivery. CM spoke with CM Herminia/HCP who stated that the pt was discharged home with home o2 and supplies. Herminia completed the order using HCP order form and got the signature from dr. Myrick. The order then forwarded to the DME company. The DME order process was completed. The oxygen tanks were delivered to home and to pt yesterday.
--- NOTE | 2018-08-27 16:28 | NUR ---
DISCHARGE FOLLOW UP PHONE CALL [employer] phoned pt and phone number is disconnected. [employer] phoned grandson who states pt is doing fair. Pt was able to fill some of her prescription and is still waiting on the others that needed to be ordered. Pt received both O2 and nebulizer and does not have any questions/concerns about them. Pt's grandson asked for [employer] and/or Herminia Cardoso's phone number, and [employer] provided. [employer] encouraged grandson to call SS if any questions arise.
== END 2018-08-26 19:55 | disposition home health service (06) | DRG 193 ==
LOC: SED 09:37 → SIC 09:50 → STU 08-24 11:47
PROVIDERS: ADMIT Internal Medicine Hospice and Palliative Medicine; ATTEND Internal Medicine Hospice and Palliative Medicine
PROC: 5A09357 Assistance with Respiratory Ventilation, Less than 24 Consecutive Hours, Continuous Positive Airway Pressure (ICD-10-PCS; principal; 2018-08-21)
DX: J18.9 Pneumonia, unspecified organism (principal); J96.21 Acute and chronic respiratory failure with hypoxia; J44.0 Chronic obstructive pulmonary disease with (acute) lower respiratory infection; E66.2 Morbid (severe) obesity with alveolar hypoventilation; E87.2 Acidosis; Z96.641 Presence of right artificial hip joint; M19.90 Unspecified osteoarthritis, unspecified site; E11.9 Type 2 diabetes mellitus without complications; J40 Bronchitis, not specified as acute or chronic; I10 Essential (primary) hypertension; E78.5 Hyperlipidemia, unspecified; Z90.49 Acquired absence of other specified parts of digestive tract; Z87.891 Personal history of nicotine dependence; Z88.0 Allergy status to penicillin; Z88.6 Allergy status to analgesic agent; Z79.899 Other long term (current) drug therapy; Z79.84 Long term (current) use of oral hypoglycemic drugs; Z68.35 Body mass index [BMI] 35.0-35.9, adult
CPT/HCPCS: 36415; 36600; 71045; 71275; 80048; 80053; 82803-TC; 82962; 83605; 83880; 84484; 85025; 86710; 87040-TC; 87081; 93005; 93306; 93970; 94640; 94660; 94760; 96374; 96375; 97110-GP; 97116-GP; 97530-GP; 99291; G0378; J1030; J1650; J1815; J1940; J1956; J2930; J3490; J7042; J7613; J7620; J7626; Q9967

== ENCOUNTER 2018-11-11 22:20 | Emergency (ER) | payer OTHER, MEDICAID ==
[~2018-11-11] VITALS: Ht 149.9 cm; Wt 77.1 kg
[~2018-11-11 22:20] MED LIST changes: -ACET-2634 PO; +ACET325C4 PO; +ALBU2.5V7 INH; +AMOX-426 PO; +BUDE0.5A IH; -DESL5TAB PO; +DESL5TAB29 PO; +DOCU250C14 PO; -DOCU250C75 PO; +DONE10TA44 PO; +FURO-150 PO; +GLUC500C2 PO; -IBUP-1969 PO; +IRBE300T40 PO; -LOSA100T3 PO; +MED4 PO; +MONT10TA25 PO; +PHEDM120 PO; -SITA100T11 PO; +SITA25TA3 PO; +TURM538C PO
[2018-11-11 22:35] VITALS: BP_SYST 172
--- NOTE | 2018-11-11 22:46 | NUR ---
2246 - Patient to ER bed 1 to gow for evaluation. Side rails up. Report given to CLAUDETTE Carlos.
--- NOTE | 2018-11-11 22:46 | NUR ---
Pt BIB family members s/p fall and laceration to back of head. Pt states that she got up from the couch to turn off the lights in her room. As she turned around, she lost balance and hit the back of her head on a door hinge. Pt denies LOC, but states that she cut the back of her head and there was a lot of blood. Pt arrives AAOx4, dsg to head, bleeding controlled.
--- NOTE | 2018-11-11 23:07 | NUR ---
Pt to CT via stretcher in stable condition.
--- NOTE | 2018-11-11 23:20 | NUR ---
Pt returns from CT. VSS. No needs verbalized at this time.
--- NOTE | 2018-11-11 23:50 | NUR ---
Dr. Orosco at bedside to assess pt.
[2018-11-12] MEDS ORDERED: DIPH-TET-PERTUS Vaccine 0.5 ML VIAL (ADACEL) I.M. ONE
--- NOTE | 2018-11-12 00:20 | NUR ---
Dsg removed, dry blood to hair and scalp. Site cleansed with NS, no active bleeding noted. ~2.5 cm lac noted to occipital area, non gaping. Dr. Orosco called to bedside, 1 staple applied to center of lac. Pt tolerated well.
[2018-11-12 00:55] VITALS: BP_SYST 180
--- NOTE | 2018-11-12 00:55 | NUR ---
Patient given written and verbal discharge instructions and verbalizes understanding. ER MD discussed with patient the results and treatment provided. Patient in stable condition. ID arm band removed. Rx of Bacitracin and Tylenol given. Patient educated on pain management and to follow up with PMD. Pain Scale 0/10. Opportunity for questions provided and answered. Medication side effect fact sheet provided.
== END 2018-11-12 00:55 | disposition home or self-care (01) ==
LOC: SED 22:20
DX: S01.01XA Laceration without foreign body of scalp, initial encounter (principal); J44.9 Chronic obstructive pulmonary disease, unspecified; E11.9 Type 2 diabetes mellitus without complications; I10 Essential (primary) hypertension; E78.5 Hyperlipidemia, unspecified; M19.90 Unspecified osteoarthritis, unspecified site; Z90.49 Acquired absence of other specified parts of digestive tract; Z88.0 Allergy status to penicillin; Z88.6 Allergy status to analgesic agent; Z79.899 Other long term (current) drug therapy; W18.09XA Striking against other object with subsequent fall, initial encounter; Y93.89 Activity, other specified; Y92.89 Other specified places as the place of occurrence of the external cause; Y99.8 Other external cause status
CPT/HCPCS: 70450-TC; 90715; 99284

== ENCOUNTER 2018-11-24 15:40 | Inpatient (IN) | payer OTHER, MEDICAID ==
[~2018-11-24] VITALS: Ht 149.9 cm; Wt 84.4 kg
[2018-11-24 15:52] VITALS: BP_SYST 148
[2018-11-24] MEDS ORDERED: IPRATROPIUM/ALBUTEROL SULFATE 3 ML AMPUL.NEB (DUONEB) INH ONE (16:15)
[2018-11-24] MEDS ORDERED: methylPREDNISolone SOD SUCC/PF 62.5 MG/ML VIAL IVP ONE (17:00)
[2018-11-24 17:03] LABS: BASOPHILS % (AUTO) 0.7 % (0.0-2.0); EOSINOPHILS % (AUTO) 2.6 % (0.0-4.0); HEMATOCRIT 38.5 % (36-48); HEMOGLOBIN 12.5 g/dL (12.0-16.0); LYMPHOCYTES % (AUTO) 20.6 % (20.5-51.5); MEAN CORPUSCULAR HEMOGLOBIN 28 pg (27-31); MEAN CORPUSCULAR HGB CONC 33 % (32-36); MEAN CORPUSCULAR VOLUME 87 fL (79.0-98.0); MONOCYTES % (AUTO) 10.4 % (1.7-9.3); NEUTROPHILS % (AUTO) 65.7 % (40.0-70.0); PLATELET COUNT (AUTO) 235 K/uL (130-430); RED BLOOD CELL COUNT(AUTO) 4.41 MIL/uL (4.2-6.2); RED CELL DISTRIBUTION WIDTH 14.8 % (9.0-15.0); WHITE BLOOD COUNT (AUTO) 8.7 K/uL (4.8-10.8)
[2018-11-24 17:04] LABS: BASOPHILS # (AUTO) 0.1 K/uL (0.0-0.2); EOSINOPHILS # (AUTO) 0.2 K/uL (0.0-0.4); LYMPHOCYTES # (AUTO) 1.8 K/uL (1.0-5.5); MONOCYTES # (AUTO) 0.9 K/uL (0.0-1.0); NEUTROPHILS # (AUTO) 5.7 K/uL (1.8-7.7)
[2018-11-24 17:14] LABS: ANION GAP 6 (5-15); CALCIUM 8.4 mg/dL (8.4-11.0); CHLORIDE 103 mmol/L (98-107); CREATININE 0.86 mg/dL (0.55-1.30); GLUCOSE 162 mg/dL (70-99); SODIUM SERUM 141 mmol/L (136-145); UREA NITROGEN, BLOOD 16 mg/dL (8-21)
[2018-11-24 17:18] LABS: BILIRUBIN,URINE NEGATIVE (NEGATIVE); BLOOD, URINE NEGATIVE (NEGATIVE); CLARITY/URINE CLEAR (CLEAR); COLOR,URINE YELLOW (YELLOW); GLUCOSE,URINE NEGATIVE (NEGATIVE); KETONES,URINE NEGATIVE (NEGATIVE); LEUKOCYTE ESTERASE ,URINE NEGATIVE (NEGATIVE); NITRITE, URINE POSITIVE (NEGATIVE); PH,URINE 5.5 (5.0-8.0); PROTEIN URINE NEGATIVE (NEGATIVE); UROBILINOGEN,URINE 0.2 (0.2-1.0)
[2018-11-24 17:19] LABS: ALANINE AMINOTRANSFERASE 26 U/L (12-78); ASPARTATE AMINOTRANSFERASE 22 U/L (10-37); TOTAL BILIRUBIN 0.3 mg/dL (0.0-1.0)
[2018-11-24 17:30] LABS: BACTERIA,URINE MODERATE /HPF (None Seen); RBC,URINE 0-3 /HPF (0-3); WBC,URINE 0-3 /HPF (0-3)
[2018-11-24 17:31] LABS: HYALINE CASTS, URINE 0-10 /LPF (None Seen)
[2018-11-24 17:33] LABS: PROTHROMBIN TIME 10.5 SECS (9.5-12.5)
[2018-11-24] MEDS ORDERED: hydrALAZINE HCL 20 MG/ML VIAL IVP ONE (18:00)
[2018-11-24] MEDS ORDERED: IBUP-1969 PO (18:10)
[2018-11-24] MEDS ORDERED: LOSA100T3 PO (18:10)
[2018-11-24] MEDS ORDERED: LIP40 PO (18:10)
[2018-11-24] MEDS ORDERED: FURO-150 PO (18:10)
[2018-11-24] MEDS ORDERED: SITA25TA3 PO (18:10)
[2018-11-24] MEDS ORDERED: DOCU250C14 PO (18:10)
[2018-11-24] MEDS ORDERED: TOPXL100 PO (18:10)
[2018-11-24] MEDS ORDERED: DESL5TAB29 PO (18:10)
[2018-11-24 18:54] VITALS: BP_SYST 140
[2018-11-24 20:00] VITALS: BP_SYST 156
[2018-11-25 00:14] VITALS: BP_SYST 158
[2018-11-25] MEDS: guaiFENesin/DEXTROMETHORPHAN 10 ML UDC PO PRN ×2 (00:52→21:49)
[2018-11-25] MEDS ORDERED: ZOLPIDEM TARTRATE 5 MG TABLET PO SCH (01:00)
[2018-11-25] MEDS ORDERED: IPRATROPIUM BROM 0.5 MG/2.5 ML VIAL.NEB (ATROVENT) INH PRN (01:30)
[2018-11-25] MEDS ORDERED: ALBUTEROL SULFATE 0.083% 2.5 MG/3 ML VIAL.NEB INH PRN (01:30)
[2018-11-25] MEDS ORDERED: ACETAMINOPHEN 325 MG TABLET PO PRN (01:30)
[2018-11-25] MEDS ORDERED: ONDANSETRON HCL 4 MG/2 ML VIAL IVP PRN (01:30)
[2018-11-25 01:50] VITALS: BP_SYST 140
[2018-11-25] MEDS: ALBUTEROL SULFATE 0.083% 2.5 MG/3 ML VIAL.NEB INH SCH ×6 (02:23→22:54)
[2018-11-25] MEDS ORDERED: AZITHROMYCIN 500 MG/VIAL (ZITHROMAX) IV ONE (02:27)
[2018-11-25] MEDS ORDERED: CEFAZOLIN 1 GM IVPB PREMIX 0 ML IV ONE (02:27)
[2018-11-25] MEDS ORDERED: cefTRIAXone 1 GM IVPB PREMIX 50 ML IV ONE (02:32)
[2018-11-25] MEDS ORDERED: cefTRIAXone 1 GM IVPB PREMIX 50 ML IV SCH (05:00)
[2018-11-25] MEDS: methylPREDNISolone SOD SUCC/PF 62.5 MG/ML VIAL IVP SCH ×3 (05:23→21:49)
[2018-11-25] MEDS ORDERED: AZITHROMYCIN 500 MG in NS 250 ML IV SCH (06:00)
[2018-11-25 06:25] LABS: RED BLOOD CELL COUNT(AUTO) 4.69 MIL/uL (4.2-6.2)
[2018-11-25 06:26] LABS: HEMATOCRIT 41.1 % (36-48); HEMOGLOBIN 13.1 g/dL (12.0-16.0); MEAN CORPUSCULAR HEMOGLOBIN 28 pg (27-31); MEAN CORPUSCULAR HGB CONC 32 % (32-36); MEAN CORPUSCULAR VOLUME 88 fL (79.0-98.0); PLATELET COUNT (AUTO) 253 K/uL (130-430); RED CELL DISTRIBUTION WIDTH 15.1 % (9.0-15.0)
[2018-11-25] MEDS: INSULIN Lispro 100 UNITS/ML VIAL (humaLOG) SUBCUT PRN ×4 (06:26→22:00)
[2018-11-25 06:27] LABS: BASOPHILS % (AUTO) 0.2 % (0.0-2.0); LYMPHOCYTES % (AUTO) 9.5 % (20.5-51.5); MONOCYTES # (AUTO) 0.4 K/uL (0.0-1.0); MONOCYTES % (AUTO) 3.9 % (1.7-9.3); NEUTROPHILS # (AUTO) 9.5 K/uL (1.8-7.7); NEUTROPHILS % (AUTO) 86.4 % (40.0-70.0)
[2018-11-25 06:35] LABS: ALANINE AMINOTRANSFERASE 25 U/L (12-78); ALBUMIN 2.9 g/dL (3.4-4.8); ANION GAP 2 (5-15); ASPARTATE AMINOTRANSFERASE 22 U/L (10-37); CALCIUM 8.5 mg/dL (8.4-11.0); CHLORIDE 101 mmol/L (98-107); CREATININE 0.76 mg/dL (0.55-1.30); GLUCOSE 189 mg/dL (70-99); POTASSIUM 4.3 mmol/L (3.5-5.1); SODIUM SERUM 133 mmol/L (136-145); TOTAL BILIRUBIN 0.2 mg/dL (0.0-1.0); UREA NITROGEN, BLOOD 15 mg/dL (8-21)
[2018-11-25] MEDS: IPRATROPIUM BROM 0.5 MG/2.5 ML VIAL.NEB (ATROVENT) INH SCH ×5 (07:00→22:55)
[2018-11-25 08:00] VITALS: BP_SYST 150
[2018-11-25] MEDS: DOCUSATE SODIUM 250 MG CAPSULE PO SCH (08:41)
[2018-11-25] MEDS: ATORVASTATIN 20 MG TABLET PO SCH (08:41)
[2018-11-25] MEDS: FUROSEMIDE 20 MG TABLET PO SCH (08:42)
[2018-11-25] MEDS: METOPROLOL SUCCINATE 50 MG TAB.SR.24H (TOPROL XL) PO SCH (08:42)
[2018-11-25] MEDS: FAMOTIDINE 20 MG TABLET PO SCH (08:43)
[2018-11-25] MEDS: LOSARTAN POTASSIUM 50 MG TABLET (COZAAR) PO SCH (08:43)
[2018-11-25] MEDS: ENOXAPARIN SODIUM 30 MG/0.3 ML SYRINGE SUBCUT SCH (08:44)
[2018-11-25 12:17] VITALS: BP_SYST 142
[2018-11-25] MEDS ORDERED: IOHEXOL 350 mgI/mL, 150 ML INFUS..BTL IV ONE (15:04)
[2018-11-25 16:34] VITALS: BP_SYST 139
[2018-11-25 20:05] VITALS: BP_SYST 140
[2018-11-25] MEDS ORDERED: ZOLPIDEM TARTRATE 5 MG TABLET PO PRN (21:45)
[2018-11-25] MEDS ORDERED: MORPHINE 4 MG/ML INJ. SYRINGE IVP SCH (22:00)
[2018-11-26] MEDS: ALBUTEROL SULFATE 0.083% 2.5 MG/3 ML VIAL.NEB INH SCH ×4 (03:00→16:24)
[2018-11-26] MEDS: IPRATROPIUM BROM 0.5 MG/2.5 ML VIAL.NEB (ATROVENT) INH SCH ×4 (03:00→16:24)
[2018-11-26 06:04] LABS: ANION GAP 6 (5-15); CHLORIDE 99 mmol/L (98-107); CREATININE 0.87 mg/dL (0.55-1.30); GLUCOSE 248 mg/dL (70-99); POTASSIUM 4.4 mmol/L (3.5-5.1); SODIUM SERUM 133 mmol/L (136-145); UREA NITROGEN, BLOOD 20 mg/dL (8-21)
[2018-11-26 07:17] LABS: RED BLOOD CELL COUNT(AUTO) 4.65 MIL/uL (4.2-6.2); WHITE BLOOD COUNT (AUTO) 15.7 K/uL (4.8-10.8)
[2018-11-26 07:18] LABS: HEMATOCRIT 41.2 % (36-48); LYMPHOCYTES % (AUTO) 8.6 % (20.5-51.5); MEAN CORPUSCULAR HEMOGLOBIN 28 pg (27-31); MEAN CORPUSCULAR HGB CONC 32 % (32-36); MEAN CORPUSCULAR VOLUME 89 fL (79.0-98.0); NEUTROPHILS % (AUTO) 88.3 % (40.0-70.0); PLATELET COUNT (AUTO) 268 K/uL (130-430); RED CELL DISTRIBUTION WIDTH 15.3 % (9.0-15.0)
[2018-11-26 07:19] LABS: BASOPHILS % (AUTO) 0.1 % (0.0-2.0); LYMPHOCYTES # (AUTO) 1.4 K/uL (1.0-5.5); MONOCYTES # (AUTO) 0.5 K/uL (0.0-1.0); NEUTROPHILS # (AUTO) 13.9 K/uL (1.8-7.7)
[2018-11-26] MEDS: METOPROLOL SUCCINATE 50 MG TAB.SR.24H (TOPROL XL) PO SCH (09:00)
[2018-11-26] MEDS: FUROSEMIDE 20 MG TABLET PO SCH (09:00)
[2018-11-26] MEDS: DOCUSATE SODIUM 250 MG CAPSULE PO SCH (09:00)
[2018-11-26] MEDS: ATORVASTATIN 20 MG TABLET PO SCH (09:00)
[2018-11-26] MEDS: LOSARTAN POTASSIUM 50 MG TABLET (COZAAR) PO SCH (09:00)
[2018-11-26] MEDS: FAMOTIDINE 20 MG TABLET PO SCH (09:00)
[2018-11-26] MEDS: ENOXAPARIN SODIUM 30 MG/0.3 ML SYRINGE SUBCUT SCH (09:00)
[2018-11-26] MEDS ORDERED: FUROSEMIDE 20 MG/2 ML VIAL IVP ONE (09:45)
[2018-11-26] MEDS: INSULIN Lispro 100 UNITS/ML VIAL (humaLOG) SUBCUT PRN ×2 (11:44→17:03)
[2018-11-26 12:15] VITALS: BP_SYST 130
[2018-11-26 12:25] VITALS: BP_SYST 156
[2018-11-26 16:14] VITALS: BP_SYST 138
[2018-11-27] MEDS ORDERED: PREDNISONE 20 MG TABLET PO SCH (09:00)
== END 2018-11-26 17:45 | disposition hospice, home (50) | DRG 193 ==
LOC: SED 15:40 → STU 17:31 → SMU 11-25 09:30
PROVIDERS: ADMIT Internal Medicine; ATTEND Internal Medicine
PROC: 5A09357 Assistance with Respiratory Ventilation, Less than 24 Consecutive Hours, Continuous Positive Airway Pressure (ICD-10-PCS; principal; 2018-11-25)
DX: J18.9 Pneumonia, unspecified organism (principal); I50.33 Acute on chronic diastolic (congestive) heart failure; J96.20 Acute and chronic respiratory failure, unspecified whether with hypoxia or hypercapnia; J44.0 Chronic obstructive pulmonary disease with (acute) lower respiratory infection; J44.1 Chronic obstructive pulmonary disease with (acute) exacerbation; E66.2 Morbid (severe) obesity with alveolar hypoventilation; I11.0 Hypertensive heart disease with heart failure; E11.9 Type 2 diabetes mellitus without complications; E78.5 Hyperlipidemia, unspecified; F03.90 Unspecified dementia, unspecified severity, without behavioral disturbance, psychotic disturbance, mood disturbance, and anxiety; M19.90 Unspecified osteoarthritis, unspecified site; K21.9 Gastro-esophageal reflux disease without esophagitis; Z83.3 Family history of diabetes mellitus; Z86.73 Personal history of transient ischemic attack (TIA), and cerebral infarction without residual deficits; Z87.891 Personal history of nicotine dependence; Z99.81 Dependence on supplemental oxygen; Z88.0 Allergy status to penicillin; Z88.6 Allergy status to analgesic agent; Z79.899 Other long term (current) drug therapy; Z68.37 Body mass index [BMI] 37.0-37.9, adult
CPT/HCPCS: 36415; 36600; 70450-TC; 71045; 71275; 80048; 80053; 81000-TC; 82803-TC; 82962; 83880; 84484; 85025; 85379; 85610-TC; 87040-TC; 87086; 93005; 93970; 94640; 94660; 94664; 94760; 96365; 96375; 99285; G0378; J0360; J0456; J0690; J0696; J1650; J1940; J1956; J2930; J7050; J7613; J7620; Q9967